=== PATIENT | male | born 1960 | race Caucasian/White ===

== ENCOUNTER 2018-06-24 11:22 | Emergency (ER) | payer MEDICARE ==
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
[2018-06-24 16:12] LABS: Basophils % (A) 1 %; Eosinophils # (A) 0.1 k/uL (0-0.7); Eosinophils % (A) 2 %; HGB 14.7 gm/dL (13.0-17.5); Lymphocytes # (A) 2.5 k/uL (1.0-4.8); Lymphocytes % (A) 33 %; MCH 30.4 pg (25.0-35.0); MCHC 32.7 g/dL (31.0-37.0); Monocytes # (A) 0.5 k/uL (0-1.0); Monocytes % (A) 7 %; Neutrophils # (A) 4.2 k/uL (1.3-7.7); Neutrophils % (A) 56 %; Platelet Count 214 k/uL (150-450); RBC 4.84 m/uL (4.30-5.90); RDW 13.2 % (11.5-15.5); WBC 7.5 k/uL (3.8-10.6)
[2018-06-24 16:18] LABS: ALT 40 U/L (21-72); AST 22 U/L (17-59); Albumin 3.9 g/dL (3.5-5.0); Alkaline Phosphatase 94 U/L (38-126); Anion Gap 7 mmol/L; Blood Urea Nitrogen 13 mg/dL (9-20); Calcium 8.9 mg/dL (8.4-10.2); Carbon Dioxide 23 mmol/L (22-30); Chloride 111 mmol/L (98-107); Glucose 88 mg/dL (74-99); Potassium 4.4 mmol/L (3.5-5.1); Sodium 141 mmol/L (137-145); Total Bilirubin 0.4 mg/dL (0.2-1.3); Total Protein 6.4 g/dL (6.3-8.2)
[2018-06-24] MEDS ORDERED: ALBUTEROL INHALER 60 PUFF/8 GM INHALER INHALATION PRN (17:05)
[2018-06-24 18:26] LABS: Appearance,Urine Cloudy (Clear); Bilirubin,Urine Negative (Negative); Blood,Urine Negative (Negative); Color,Urine Yellow; Glucose,Urine (UA) Negative (Negative); Hyaline Casts,Urine 11 /lpf (0-2); Ketones,Urine Negative (Negative); Leukocyte Esterase,Urine Negative (Negative); Mucus,Urine Many /hpf; Nitrite,Urine Negative (Negative); Protein,Urine 1+ (Negative); RBC,Urine 1 /hpf (0-5); Specific Gravity,Urine 1.025 (1.001-1.035); WBC,Urine 2 /hpf (0-5)
[2018-06-24 18:35] LABS: Amphetamine Screen,Urine Not Detected (NotDetected); Barbiturate Screen,Urine Not Detected (NotDetected); Benzodiazepines Screen,Urine Not Detected (NotDetected); Cocaine Screen,Urine Not Detected (NotDetected); Methadone Screen, Urine Not Detected (NotDetected); Opiate Screen,Urine Detected (NotDetected); Oxycodone Screen, Urine Detected (NotDetected); Phencyclidine Screen,Urine Not Detected (NotDetected); Tricyclic Antidepressant,Urine Not Detected (NotDetected); Urn Cannabinoid Scrn Detected (NotDetected)
[2018-06-24] MEDS ORDERED: NICOTINE 14MG/24HR PATCH TRANSDERM STA (20:11)
[2018-06-24] MEDS ORDERED: MORPHINE SULFATE ER 30 MG TABLET PO SCH (21:00)
[2018-06-24] MEDS ORDERED: METOPROLOL TARTRATE 50 MG TAB PO SCH (22:00)
[2018-06-24] MEDS ORDERED: hydrALAZINE HCL 25 MG TAB PO SCH (22:00)
[2018-06-25] MEDS ORDERED: LORazepam 2 MG/ML INJ IM STA (00:32)
[2018-06-25] MEDS ORDERED: diphenhydrAMINE 50 MG/ML 1 ML VIAL IM STA (00:32)
[2018-06-25 01:34] VITALS: BP 139/79; PULSE 84; RESP 17
[2018-06-25 01:39] VITALS: TEMP 98.6
[2018-06-25] MEDS ORDERED: NON-FORMULARY DRUG (Losartan/Hydrochlorothiazide [Hyzaar 100-12.5 Tablet] 1 TAB) PO SCH (09:00)
== END 2018-06-25 01:39 ==
LOC: EC 11:22
DX: F32.9 Major depressive disorder, single episode, unspecified (principal); F41.9 Anxiety disorder, unspecified; R45.851 Suicidal ideations; I25.10 Atherosclerotic heart disease of native coronary artery without angina pectoris; I10 Essential (primary) hypertension; Z87.891 Personal history of nicotine dependence; Z98.890 Other specified postprocedural states; Z79.891 Long term (current) use of opiate analgesic; Z79.899 Other long term (current) drug therapy; Z88.5 Allergy status to narcotic agent
CPT/HCPCS: 82075; 36415; 93005; 80053; 85025; 81001; 80306; 99285; 96372 ×2; S4990; J2060; J1200

== ENCOUNTER → 2018-12-03 | Outpatient (CLI) | payer MEDICARE ==
--- NOTE | 2018-12-03 14:10 | MR ---
EXAMINATION TYPE: MR lumbar spine wo con DATE OF EXAM: 12/03/2018 COMPARISON: Prior MRI lumbar spine June 05, 2016 HISTORY: Low back pain / Radiculopathy TECHNIQUE: Multiplanar, multisequence imaging of the lumbar spine is performed without IV contrast. FINDINGS: Sagittal images of the lumbar spine show vertebral body heights and alignment to remain sat isfactory. Multilevel disc desiccation is redemonstrated. Mild to moderate disc space narrowing L2-L3 level is redemonstrated. Advanced disc space narrowing with heterogeneous endplate changes L5-S1 lev el is redemonstrated. Posterior disc herniations L2-L3 and L3-L4 levels are redemonstrated on sagitta l images felt stable. The conus medullaris remains normal in position and signal ending mid L1 level. Heterogeneity of bone marrow signal intensity remains present with mild to moderate multilevel anter ior spurring again seen. Axial images show the T12-L1 level to remain within normal limits. Axial images at the L1-L2 level redemonstrate mild broad disc bulge mildly effacing anterior thecal s ac, bilateral neural foramina are patent. Axial images at L2-L3 level show more moderate broad disc bulge effacing anterior thecal sac, bilater al neural foramina are patent. No significant change from prior. Axial images at the L3-L4 level show mild to moderate broad-based posterior disc protrusion mildly ef facing anterior thecal sac with mild facet degenerative changes bilaterally. There is mild right grea ter than left bilateral anterior inferior neural foraminal narrowing. There is no significant change from prior. Axial images at L4-L5 level show mild facet degenerative changes otherwise are felt within normal [place] its. Axial images at L5-S1 level show broad-based posterior disc protrusion mild facet degenerative change s bilaterally but spinal canal is preserved. There is mild bilateral inferior neural foraminal narrow ing. No suspicious incidental retroperitoneal findings are seen. IMPRESSION: Multilevel degenerative changes most prominent in the mid lumbar spine without significan t change from most recent MRI.
== END | disposition home or self-care (01) ==
LOC: RADMRIMAIN 12:20
PROVIDERS: ATTEND Anesthesiology Pain Medicine
DX: M47.26 Other spondylosis with radiculopathy, lumbar region (principal)
CPT/HCPCS: 72148

== ENCOUNTER 2019-09-07 10:43 | Emergency (ER) | payer MEDICARE ==
[2019-09-07] MEDS ORDERED: SODIUM CHLORIDE 0.9% 1,000 ML IV STA (11:03)
[2019-09-07] MEDS ORDERED: ASPIRIN 81 MG PO STA (11:03)
[2019-09-07] MEDS ORDERED: HYDROmorphone 1 MG/ML 1 ML SYRINGE IVP STA (11:04)
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
[2019-09-07 11:31] LABS: Basophils # (A) 0.1 k/uL (0-0.2); Basophils % (A) 1 %; Eosinophils # (A) 0.2 k/uL (0-0.7); Eosinophils % (A) 2 %; HCT 44.4 % (39.0-53.0); HGB 14.9 gm/dL (13.0-17.5); Lymphocytes # (A) 2.2 k/uL (1.0-4.8); Lymphocytes % (A) 30 %; MCH 31.7 pg (25.0-35.0); MCHC 33.7 g/dL (31.0-37.0); MCV 94.3 fL (80.0-100.0); Mean Platelet Volume 5.9; Monocytes # (A) 0.6 k/uL (0-1.0); Monocytes % (A) 9 %; Neutrophils # (A) 3.9 k/uL (1.3-7.7); Neutrophils % (A) 55 %; Platelet Count 274 k/uL (150-450); RDW 12.8 % (11.5-15.5); WBC 7.2 k/uL (3.8-10.6)
[2019-09-07 11:35] LABS: Partial Thromboplastin Time 23.6 sec (22.0-30.0); Prothrombin Time 10.3 sec (9.0-12.0)
[2019-09-07 11:42] LABS: Albumin 4.3 g/dL (3.5-5.0); Calcium 9.5 mg/dL (8.4-10.2); Potassium 4.2 mmol/L (3.5-5.1); Total Bilirubin 0.6 mg/dL (0.2-1.3); Total Protein 7.4 g/dL (6.3-8.2)
--- NOTE | 2019-09-07 13:02 | CT ---
EXAMINATION TYPE: CT angio thor/abd pel aorta DATE OF EXAM: 09/07/2019 COMPARISON: Previous CT scan of the abdomen and pelvis without intravenous contrast dated 06/16/2015. HISTORY: Lt lower chest pain, history of aneurysm CT DLP: 2408.8 mGycm. Automated Exposure Control for Dose Reduction was Utilized. CONTRAST: CT scan of the thorax, abdomen and pelvis is performed without and with IV Contrast, patient injected with 100 mL of Isovue 300. FINDINGS:There are calcified granulomas throughout the lungs. There is dependent atelectasis within t he lungs. There is some scarring or atelectasis in the left lingula. There is a small amount of pleur al thickening in the posterior aspect of the left upper lobe. There is no significant axillary, mediastinal or hilar adenopathy. There is no pleural or pericardial fluid. The heart is not enlarged. There is no evidence of pulmonary embolus. The aorta is normal in caliber without evidence of dissection. Within the abdomen, the liver is mildly prominent measuring 18.5 cm. It is slightly hypodense with re spect to the spleen and may be fatty infiltrated. The spleen and gallbladder appear normal. Both adrenal glands appear normal. Both kidneys demonstrate function and appear morphologically normal. The pancreas is normal. There is no significant retroperitoneal, iliac or inguinal adenopathy. The bladder is unremarkable. There are scattered diverticula in the sigmoid region without radiographic evidence of diverticulitis . The appendix is normal. Small bowel loops are normal. There is no free fluid and no free air. There is degenerative disc disease and a vacuum phenomena present at L5-S1. IMPRESSION: 1. NORMAL CALIBER AORTA WITHOUT EVIDENCE OF DISSECTION. 2. NO EVIDENCE OF PULMONARY EMBOLUS. 3. MILD HEPATOMEGALY AND PROBABLE FATTY INFILTRATION OF THE LIVER. 4. 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 5. MILD DIVERTICULOSIS OF THE SIGMOID COLON. 6. DEGENERATIVE CHANGES WITHIN THE SPINE.
[2019-09-07 13:04] VITALS: RESP 18
[2019-09-07] MEDS ORDERED: ORPHENADRINE 30 MG/ML 2 ML VIAL IVP STA (13:35)
[2019-09-07 13:58] VITALS: BP 120/85; PULSE 72; TEMP 98.5
== END 2019-09-07 14:05 | disposition home or self-care (01) ==
LOC: EC 10:43
DX: S29.9XXA Unspecified injury of thorax, initial encounter (principal); I25.10 Atherosclerotic heart disease of native coronary artery without angina pectoris; J44.9 Chronic obstructive pulmonary disease, unspecified; I10 Essential (primary) hypertension; I38 Endocarditis, valve unspecified; Z79.51 Long term (current) use of inhaled steroids; Z79.82 Long term (current) use of aspirin; Z79.899 Other long term (current) drug therapy; Z86.79 Personal history of other diseases of the circulatory system; Z95.5 Presence of coronary angioplasty implant and graft; Z87.891 Personal history of nicotine dependence; W50.0XXA Accidental hit or strike by another person, initial encounter; Y93.89 Activity, other specified
CPT/HCPCS: 36415; 80053; 83735; 84484; 85025; 85610; 85730; 71275; 74174; 96374; 96375; 96361 ×2; 99284; J2360; J1170; Q9967

== ENCOUNTER → 2021-08-02 | Outpatient (CLI) | payer MEDICARE ==
--- NOTE | 2021-08-02 19:06 | CONS ---
CONSULTATION REASON FOR CONSULTATION: Sleep apnea. This patient is 60. He has been seen in our office regarding his COPD. He has had extensive neck surgeries due to unstable spine fracture that occurred after a fall off a ladder. The patient has undergone 2 surgeries thus far. He has chronic pain and limitation of mobility and neck rotation because of his neck surgeries. He occasionally wakes up in the middle of night because of pain and discomfort. At same time, he is having issues with snoring and witnessed apneas and chronic hypersomnia and sleepiness. His has moved to outside the bed because of his loud snore. He goes to bed around 11 p.m., wakes up 9:00 am in the morning and he maintains same schedule throughout the week. He sleeps on his side. He does watch television in the bed. Weight is up by another 20 pounds over the past one year. The patient wakes up multiple times in the middle of night at times for pain, discomfort and urination. He does not sleep/fall asleep while driving his car. PAST MEDICAL HISTORY: COPD, bicuspid aortic valve, hypertension and cervical spine fracture/disk disease following a fall off the ladder many years back. PAST SURGICAL HISTORY: Includes cervical diskectomy and fusion C2 through C7 x2 and his last surgery was done 2010. Other surgeries are nose surgery for broken nose. DRUG ALLERGIES: NOT KNOWN. OUTPATIENT MEDICATIONS: Includes Lopressor 50 mg 3 times a day, losartan 12.5 mg once a day, hydralazine 5 mg 3 times a day, Ventolin as necessary, Symbicort 160/4.5 2 puffs twice a day, morphine 30 mg q.12 hours and oxycodone every 6 hours on a p.r.n. basis for breakthrough pain. SOCIAL HISTORY: Ex-smoker. No history of alcoholism. No history of IV drugs. FAMILY HISTORY: Negative for sleep apnea. Positive for hypertension and heart disease. REVIEW OF SYSTEMS: Fourteen-point review of system was done. Positive findings all mentioned above in history of present illness. He has chronic pain and chronic tiredness and fatigue and hypersomnia and some problems with memory and concentration. No grinding of the teeth. No sleepwalking. No sleep talking. No heartburn. No restlessness in lower extremities. PHYSICAL EXAMINATION: VITAL SIGNS: BP is 129/74, pulse 72, respirations 16, temperature 97.4. Saturation 96% on room air. Height is 5 feet 10 inches, weight is 256. [place] score is at 4. BMI 36.5. Neck size is 18.5 inches. GENERAL APPEARANCE: Calm comfortable. HEAD is atraumatic, normocephalic. NECK: Supple. No JVD. No goiter or neck masses. Mallampati class 4. LUNGS diminished, otherwise clear. HEART: Heart sounds are regular rate and rhythm. Normal S1, S2. No murmurs. ABDOMEN: Soft, nontender. No organomegaly. EXTREMITIES: No edema, no cyanosis or clubbing. IMPRESSION: 1. Obstructive sleep apnea clinically suspected, currently under investigation. The patient takes opiates in the form of morphine as maintenance and oxycodone for pain control, which obviously can cause muscle relaxation and contribute to his snoring and sleep apnea. At the same time, the patient has chronic neck pain and has undergone 2 previous surgeries involving the cervical diskectomy and multilevel spine fusion. As a result, the patient has been relatively immobile over the years and he has gained considerable amount of weight and has gained at least 20 pounds over the past one year. He has Mallampati class IV. His body mass index is 36.8. 2. Obesity. 3. Chronic obstructive pulmonary disease. 4. Bicuspid aortic valve. 5. Hypertension. PLAN: 1. We will do a polysomnogram. 2. We will discuss the findings with the patient and based on the results of sleep study, we will make further recommendations on sleep apnea treatment if needed. KALPESH / STEVE: [id number] /
== END ==
LOC: SLEEP 14:24
PROVIDERS: ATTEND Internal Medicine Critical Care Medicine
DX: G47.30 Sleep apnea, unspecified (principal); E66.9 Obesity, unspecified; M54.2 Cervicalgia; J44.9 Chronic obstructive pulmonary disease, unspecified; I10 Essential (primary) hypertension; Q23.1 Congenital insufficiency of aortic valve; Z87.891 Personal history of nicotine dependence; Z68.36 Body mass index [BMI] 36.0-36.9, adult; Z98.1 Arthrodesis status
CPT/HCPCS: 99211

== ENCOUNTER → 2022-01-31 | Outpatient (CLI) | payer MEDICARE ==
--- NOTE | 2022-01-31 15:17 | P.PN ---
Subjective Progress Note Date: 01/31/22 This is a 61-year-old the patient was being seen in follow-up in the sleep center regarding his the patient's obstructive sleep apnea. The patient was diagnosed having obstructive and central sleep apnea. screening polysomnogram was completed and the patient was found to have severe sleep apnea with abn ormalities in sleep architecture and difficulties with sleep maintenance. The patient had a combination of obstructive and central. The patient was found to have an AHI of 65. He did have a considerable number of central events as the patient was taken narcotics in the form of morphine and oxycodone. He did not have any history of congestion heart failure. He is obese and he has COPD and bicuspid aortic valve and hypertension. Based on all this, the patient was given a titration following that the patient was placed on the BiPAP which is currently at a pressure of 12/8 cm of water. On today's evaluation, the patient's complaint is that the BiPAP pressure is high and sometimes causing too much pressure on his face. Nevertheless, he is benefiting from the treatment and he continues to use his BiPAP every night. I did check his compliance he ate on the machine. Based on the 30 day compliancy, the patient has utilizes BiPAP every night and he hasn't she is more than 4 hours 26 out of the past 30 days. His been averaging around 5.4 hours of BiPAP use per night. He is leak is in order o 49 L per minute. His tidal volumes at 720 mL and the patient has a respiratory rate of 12 and a minute ventilation of 9.1 L per minute. The patient's current [place] score is at 5. His AHI while on treatment is down to 12 and the patient has a central apnea and this of 6.6. His weight is up by a few pounds and currently is weighing around 260. Overall, he is doing well. He is benefiting from the treatment. He is waking up much more refreshed and alert during the day. No new complaints otherwise for now. No chest pain. No shortness of breath and no cardiac arrhythmias. He is going to undergo further rhizotomy regarding his chronic neck pain. Objective - Exam the patient has a blood pressure 158/81, pulse is 72, respirations 16, weight is 260 pounds, and saturation 97% on room air, The patient appeared well nourished and normally developed. Vital signs as documented. Head exam is unremarkable. No scleral icterus or corneal arcus noted. Neck is without jugular venous distension, thyromegaly, or carotid bruits. Carotid upstrokes are brisk bilaterally. the patient has a Mallampati class IV.Lungs are clear to auscultation and percussion. Cardiac exam reveals the PMI to be normally sized and situated. Rhythm is regular. First and second heart sounds normal. No murmurs, rubs or gallops. Abdominal exam reveals normal bowel sounds, no masses, no organomegaly and no aortic enlargement. Extremities are nonedematous and both femoral and pedal pulses are normal.Examination of the skin revealed no evidence of significant rashes, suspicious appearing nevi or other concerning lesions.Neurologically, the patient is awake and alert and the patient does not have any focal neurological deficit. Cranial nerves are essentially intact. Assessment and Plan Plan: 1 severe sleep apnea, a combination of obstructive and central with a baseline AHI of 65. The patient is currently on a BiPAP at a pressure of 12/8 cm of water. Note that the treatment has growth on the patient's AHI down to 12. The patient continues to have some mild central events. Obstructive events are essentially recovered. 2chronic hypersomnia, improving 3 severe nocturnal oxygen saturation, improving 4 excessive sleep fragmentation, multifactorial, related to chronic pain in addition to obstructive and central sleep apnea 5 obesity with a body mass index of 37 6 COPD 7 chronic narcotic use in the form of oxycodone and morphine 8 bicuspid aortic valve 9 hypertension Plan Treatment in general has been successful. Continue the BiPAP treatment for now. I'm going to switch this patient to a VPAP auto and I'm going to set the minimum EPAP at 4 and a maximum pressure of 12 with a pressure support of 4. We'll keep the same mask interface. Continue narcotics with a combination of morphine and oxycodone and the patient is going to undergo rhizotomy for his chronic neck pain. I'm hoping better pain control for this patient. Encourage weight loss. Optimize sleep hygiene. See me back in the office in a year's time in follow-up.
== END ==
LOC: SLEEP 13:59
PROVIDERS: ATTEND Internal Medicine Critical Care Medicine
DX: G47.33 Obstructive sleep apnea (adult) (pediatric) (principal); G47.31 Primary central sleep apnea; G47.36 Sleep related hypoventilation in conditions classified elsewhere; G89.29 Other chronic pain; E66.9 Obesity, unspecified; J44.9 Chronic obstructive pulmonary disease, unspecified; Z79.891 Long term (current) use of opiate analgesic; Q23.1 Congenital insufficiency of aortic valve; Z99.89 Dependence on other enabling machines and devices; Z68.37 Body mass index [BMI] 37.0-37.9, adult; I10 Essential (primary) hypertension; Z87.891 Personal history of nicotine dependence

== ENCOUNTER → 2022-08-08 | Outpatient (CLI) | payer MEDICARE ==
--- NOTE | 2022-08-08 14:50 | US ---
EXAMINATION TYPE: US carotid duplex BILAT DATE OF EXAM: 08/08/2022 COMPARISON: NONE CLINICAL HISTORY: R42 DIZZINESS AND GIDDINESS M54.2 I10. TECHNIQUE: Carotid duplex ultrasound examination. Indirect Doppler criteria was utilized. FINDINGS: EXAM MEASUREMENTS: RIGHT: Peak Systolic Velocity (PSV) cm/sec ----- Right CCA: 78.7 ----- Right ICA: 133.4 ----- Right ECA: 103.0 ICA/CCA ratio: 1.7 RIGHT: End Diastole cm/sec ----- Right CCA: 25.9 ----- Right ICA: 51.0 ----- Right ECA: 28.0 LEFT: Peak Systolic Velocity (PSV) cm/sec ----- Left CCA: 104.3 ----- Left ICA: 132.9 ----- Left ECA: 27.8 ICA/CCA ratio: 1.3 LEFT: End Diastole cm/sec ----- Left CCA: 34.4 ----- Left ICA: 60.2 ----- Left ECA: 27.8 VERTEBRALS (direction of flow): Right Vertebral: Antegrade Left Vertebral: Antegrade Rhythm: Normal BALLING HEAD TENDER NOTES: Mild atherosclerotic changes without significant velocity increases. IMPRESSION: No hemodynamically significant stenosis appreciated. Criteria for Assigning % of Stenosis / Diameter reduction (Estimation based on the indirect measurements of the internal carotid artery velocities (ICA PSV). 1. Normal (no stenosis)=ICA PSV < 125 cm/s: ratio < 2.0: ICA EDV<40 cm/s. 2. Less than 50% stenosis=ICA PSV < 125 cm/s: ratio < 2.0: ICA EDV<40 cm/s. 3. 50 to 69% stenosis=ICA PSV of 125 to 230 cm/s: ration 2.0 ? 4.0: ICA EDV 40-100 cm/s. 4. Greater than 70% stenosis to near occlusion= ICA PSV > 230 cm/s: ratio > 4.0: ICA EDV > 100 cm/s. 5. Near occlusion= ICA PSV velocities may be low or undetectable: variable ratio and ICA EDV. 6. Total occlusion=unable to detect flow.
== END | disposition home or self-care (01) ==
LOC: RADUSWWP 14:02
PROVIDERS: ATTEND Family Medicine
DX: R42 Dizziness and giddiness (principal); M54.2 Cervicalgia; I10 Essential (primary) hypertension
CPT/HCPCS: 93880

== ENCOUNTER 2022-11-23 11:03 | Day surgery (SDC) | payer MEDICARE ==
[2022-11-21 15:46] VITALS: BMI 34.8
[~2022-11-23 11:03] MED LIST: ATROPINE SULFATE 0.4 MG/ML 1 ML VIAL IM ONE; LACTATED RINGERS 1,000 ML IV SCH
[2022-11-23] MEDS ORDERED: LIDOCAINE 1% (10MG/ML) FOR IV START INTRADERMA PRN (11:38)
[2022-11-23] MEDS ORDERED: ONDANSETRON 4 MG/2 ML VIAL IVP PRN (11:38)
[2022-11-23] MEDS ORDERED: LACTATED RINGERS 1,000 ML IV SCH (11:38)
[2022-11-23 11:57] VITALS: RESP 16; TEMP 97.3
[2022-11-23] MEDS ORDERED: MIDAZOLAM 2 MG/2 ML VIAL ONE (12:15)
[2022-11-23] MEDS ORDERED: LIDOCAINE 2% INJ 20 MG/ML (2 ML VIAL) ONE (12:15)
[2022-11-23] MEDS ORDERED: PROPOFOL 10 MG/ML 20 ML VIAL IV ONE (12:15)
[2022-11-23] MEDS ORDERED: KETAMINE 10 MG/ML 20 ML VIAL ONE (12:15)
[2022-11-23] MEDS ORDERED: fentaNYL (PF) 50 MCG/ML 2 ML AMP ONE (12:15)
[2022-11-23] MEDS ORDERED: LIDOCAINE 2% INJ 20 MG/ML INTRATRACH ONE (12:26)
[2022-11-23 13:09] VITALS: BP 121/76; PULSE 66
--- NOTE | 2022-11-23 13:13 | PCN ---
PROCEDURE NOTE PROCEDURE PERFORMED: Bronchoscopy, airway examination, therapeutic lavage, BAL, right middle lobe. PREOPERATIVE DIAGNOSES: Retained secretions, chronic obstructive pulmonary disease, acute bronchitis. POSTOPERATIVE DIAGNOSES: Retained secretions, chronic obstructive pulmonary disease, acute bronchitis. OPERATORS: Dr. Sweeney. There was informed consent and universal timeout. The patient's procedure took place in room #1 [facility] endoscopy. ANESTHESIA: Provided general anesthesia. DESCRIPTION OF PROCEDURE: After the patient was adequately sedated and being fully monitored, the bronchoscope was inserted through the right nostril. It passed through the right nasopharynx into the oropharynx. Next, the hypopharynx was identified. The hypopharyngeal structures, including anterior commissure, true cords, false cords, arytenoids, piriform sinuses right and left, vallecula, and epiglottis, all appeared normal. The glottic opening was topicalized. The bronchoscope was pushed through the glottic opening into the trachea. There was a mild degree of tracheomalacia. The trachea itself looked otherwise normal. Tracheal darian was sharp. The right and left mainstem were topicalized. The right upper lobe and its 3 segments, right middle lobe and its 2 segments, the right lower lobe and its 5 segments, the left upper lobe proper and its 2 segments, the lingula and its 2 segments and the left lower lobe and its 4 segments all had similar findings of diffuse airway erythema and hyperemia. There were thick secretions. They were suctioned with some difficulty. There was no dominant mass or tumor. There was some mucosal friability. Next, the bronchoscope was wedged into the right middle lobe. A formal BAL took place. A 30 mL of fluid was recovered. It will be sent to the laboratory for analysis including cytology and microbiology. The patient tolerated the procedure well and the bronchoscope was withdrawn. There was no immediate complication. MMODL / IJN: [id number] /
[2022-11-23 19:12] LABS: Appearance,BF Hazy
== END 2022-11-23 13:25 | disposition home or self-care (01) ==
LOC: ORWHC2ENDO 11:03
PROVIDERS: ATTEND Internal Medicine Critical Care Medicine
DX: J44.0 Chronic obstructive pulmonary disease with (acute) lower respiratory infection (principal); J39.8 Other specified diseases of upper respiratory tract; Z87.891 Personal history of nicotine dependence; I25.10 Atherosclerotic heart disease of native coronary artery without angina pectoris; I10 Essential (primary) hypertension; E78.5 Hyperlipidemia, unspecified; I71.9 Aortic aneurysm of unspecified site, without rupture; F41.9 Anxiety disorder, unspecified; Z98.1 Arthrodesis status; G47.33 Obstructive sleep apnea (adult) (pediatric); Z99.89 Dependence on other enabling machines and devices; K21.9 Gastro-esophageal reflux disease without esophagitis; Z79.01 Long term (current) use of anticoagulants; Z79.02 Long term (current) use of antithrombotics/antiplatelets; Z79.51 Long term (current) use of inhaled steroids; Z79.82 Long term (current) use of aspirin; Z79.1 Long term (current) use of non-steroidal anti-inflammatories (NSAID); Z79.891 Long term (current) use of opiate analgesic; Z79.899 Other long term (current) drug therapy; Z88.8 Allergy status to other drugs, medicaments and biological substances
CPT/HCPCS: 87798 ×3; 87496; 87498; 87529; 88108; 88305; 89050; 87252; 87502; 87634; 87070; 87205; 87116; 87102; 87206; 31624; J2001 ×2; J2250; J0461; J2405; J3010; J2704

== ENCOUNTER 2024-06-04 00:13 | Emergency (ER) | payer MEDICARE ==
[2024-06-04 00:17] VITALS: RESP 20; TEMP 98.1
[2024-06-04 01:04] LABS: Basophils # (A) 0.1 k/uL (0-0.2); Basophils % (A) 1 %; Eosinophils # (A) 0.2 k/uL (0-0.7); Eosinophils % (A) 2 %; HCT 48.1 % (39.0-53.0); HGB 15.9 gm/dL (13.0-17.5); Lymphocytes # (A) 3.4 k/uL (1.0-4.8); Lymphocytes % (A) 34 %; MCHC 33.1 g/dL (31.0-37.0); MCV 96.7 fL (80.0-100.0); Mean Platelet Volume 7.7; Monocytes # (A) 0.8 k/uL (0-1.0); Monocytes % (A) 8 %; Neutrophils # (A) 5.4 k/uL (1.3-7.7); Neutrophils % (A) 53 %; Platelet Count 265 k/uL (150-450); RBC 4.97 m/uL (4.30-5.90); RDW 12.7 % (11.5-15.5); WBC 10.1 k/uL (3.8-10.6)
[2024-06-04 01:13] LABS: Partial Thromboplastin Time 25.9 sec (22.0-30.0); Prothrombin Time 11.2 sec (10.0-12.5)
--- NOTE | 2024-06-04 01:13 | ED ---
Recheck HPI - General Chief Complaint: Recheck/Abnormal Lab/Rx Stated Complaint: elevated blood pressure Time Seen by Provider: 06/04/24 00:22 Source: patient Mode of arrival: ambulatory Limitations: no limitations - History of Present Illness Initial Comments: 63-year-old male presenting with chief complaint of elevated blood pressure. Patient reports that he has been dealing with some stressful events, states that his is currently being hospitalized. States that this evening he had what felt like a panic attack. He admits to headache with some nausea and lower back pain. He denies any shortness of breath. States that the did feel a tightness in his chest. No lower extremity swelling. He states that this feels similar to previous panic attacks. - Related Data Home Medications Medication Instructions Recorded Confirmed oxyCODONE HCL [oxyCODONE HCL (IR)] 15 mg PO Q6H 06/24/18 11/23/22 Albuterol Sulfate [Ventolin HFA] 1 - 2 puff INHALATION Q6H PRN 09/07/19 11/23/22 Aspirin EC [Ecotrin Low Dose] 81 mg PO DAILY 09/07/19 11/23/22 Metoprolol Tartrate [Lopressor] 50 mg PO TID 09/07/19 11/23/22 Budesonide/Formoterol Fumarate 1 puff INHALATION DAILY 11/21/22 11/23/22 [Symbicort 160-4.5 Mcg Inhaler] Cholecalciferol [Vitamin D3 (125 125 mcg PO DAILY 11/21/22 11/23/22 Mcg = 5000 Iu)] Ipratropium-Albuterol Nebulize 3 ml INHALATION QID PRN 11/21/22 11/23/22 [Duoneb 0.5 mg-3 mg/3 ml Soln] Losartan/Hydrochlorothiazide 1 tab PO TID 11/21/22 11/23/22 [Losartan-Hctz 100-25 mg Tab] Meclizine HCl 25 mg PO TID PRN 11/21/22 11/23/22 Morphine Sulfate [Morphine Sulfate 30 mg PO BID 11/21/22 11/23/22 ER] Multivit-Mins/Iron/Folic/Lycop 2 each PO DAILY 11/21/22 11/23/22 [Centrum Men's Tablet] hydrALAZINE HCL [Apresoline] 25 mg PO TID 11/21/22 11/23/22 Allergies Allergy/AdvReac Type Severity Reaction Status Date / Time No Known Allergies Allergy Verified 06/04/24 00:17 Review of Systems ROS Statement: Those systems with pertinent positive or pertinent negative responses have been documented in the HPI. ROS Other: All systems not noted in ROS Statement are negative. Past Medical History Past Medical History: Coronary Artery Disease (CAD), COPD, Hyperlipidemia, Hypertension, Sleep Apnea/CPAP/BIPAP Additional Past Medical History / Comment(s): See Dr Sweeney's H&P. Chronic neck and back pain. Hx fall with broken rib (healed now) due to dizziness. Vertigo. Degenerative disc disease. "Sick since Sep 2022, phlegm in lungs, cannot cough out, SOB breath". Leaky heart valve, aortic aneurysm, being monitored. CPAP use. Cannot turn head to the left. Gets pain procedures at [facility] every 6 months on neck alteranting every 6 months with pain procedures on back. History of Any Multi-Drug Resistant Organisms: None Reported Past Surgical History: Heart Catheterization, Orthopedic Surgery Additional Past Surgical History / Comment(s): Neck fusion ("6 levels), nasal surgery X2, pain procedures. Past Anesthesia/Blood Transfusion Reactions: Postoperative Nausea & Vomiting (PONV) Additional Past Anesthesia/Blood Transfusion Reaction / Comment(s): PONV with first nasal surgery. Vertigo. Past Psychological History: Anxiety Smoking Status: Former smoker Past Alcohol Use History: Rare Past Drug Use History: None Reported - Past Family History Mother Family Medical History: No Reported History General Exam Limitations: no limitations General appearance: alert, anxious Head exam: Present: atraumatic, normocephalic Eye exam: Present: normal appearance, PERRL, EOMI Neck exam: Present: normal inspection. Absent: meningismus Respiratory exam: Present: normal lung sounds bilaterally. Absent: respiratory distress, wheezes, rales, rhonchi, stridor Cardiovascular Exam: Present: regular rate, normal rhythm, normal heart sounds. Absent: systolic murmur, diastolic murmur, rubs, gallop, clicks Extremities exam: Absent: pedal edema Neurological exam: Present: alert, oriented X3 Psychiatric exam: Present: normal affect, normal mood Skin exam: Present: warm, dry Course Vital Signs 06/04/24 06/04/24 06/04/24 00:14 01:17 02:49 Temperature 98.1 F Pulse Rate 62 62 74 Respiratory 20 20 20 Rate Blood Pressure 186/89 126/95 119/65 O2 Sat by Pulse 98 99 98 Oximetry Medical Decision Making - Medical Decision Making Was pt. sent in by a medical professional or institution (TATYANA Calvo, ORTHOTIST OR PROSTHETIST, urgent care, hospital, or [facility]...) When possible be specific @ -No Did you speak to anyone other than the patient for history (EMS, parent, family, police, friend...)? What history was obtained from this source @ -No Did you review nursing and triage notes (agree or disagree)? Why? @ -I reviewed and agree with nursing and triage notes Were old charts reviewed (outside hosp., previous admission, EMS record, old EKG, old radiological studies, urgent care reports/EKG's, [facility] records)? Report findings @ -No old charts were reviewed Differential Diagnosis (chest pain, altered mental status, abdominal pain women, abdominal pain men, vaginal bleeding, weakness, fever, dyspnea, syncope, headache, dizziness, GI bleed, back pain, seizure, CVA, palpatations, mental health, musculoskeletal)? @ -MDM Differential Dyspnea: Coronary syndrome, arrhythmia, tamponade, asthma, COPD, pulmonary embolism, pneumonia, pneumothorax, pulmonary effusion, anaphylaxis, diabetic ketoacidosis, flailed chest, pulmonary contusion, diaphragmatic rupture, anemia, neuromusc ular this is not meant to be an all-inclusive list. EKG interpreted by me (3pts min.). @ -EKG shows sinus rhythm ventricular rate 61. UT interval 183. QRS 93. QT 406. QTc 410. No ST deviation X-rays interpreted by me (1pt min.). @ -Chest x-ray shows no acute cardiopulmonary process CT interpreted by me (1pt min.). @ -None done U/S interpreted by me (1pt. min.). @ -None done What testing was considered but not performed or refused? (CT, X-rays, U/S, labs)? Why? @ -None What meds were considered but not given or refused? Why? @ -None Did you discuss the management of the patient with other professionals (professionals i.e. TATYANA Calvo, ORTHOTIST OR PROSTHETIST, lab, RT, psych nurse, child protective services social worker, tax lawyer, teacher, digital controls technical officer, case hardener)? Give summary @ -No Was smoking cessation discussed for >3mins.? @ -No Was critical care preformed (if so, how long)? @ -No Were there social determinants of health that impacted care today? How? (Homelessness, low income, unemployed, alcoholism, drug addiction, transportation, low edu. Level, literacy, decrease access to med. care, [facility], rehab)? @ -No Was there de-escalation of care discussed even if they declined (Discuss DNR or withdrawal of care, Hospice)? DNR status @ -No What co-morbidities impacted this encounter? (DM, HTN, Smoking, COPD, CAD, Cancer, CVA, ARF, Chemo, Hep., AIDS, mental health diagnosis, sleep apnea, morbid obesity)? @ -None Was patient admitted / discharged? Hospital course, mention meds given and route, prescriptions, significant lab abnormalities, going to OR and other pertinent info. @ -63-year-old male presenting with chief complaint of elevated blood pressure. Patient is currently under a great deal of stress, he tells me his is being admitted for psychiatric care. Symptoms feel consistent with his previous panic attacks according to him. History and physical exam are conducted. Patient is given 2 mg Ativan as well as aspirin 324 mg. EKG shows sinus rhythm with no ST deviation. Lab work shows no leukocytosis or anemia. Negative troponin. Chest x-ray shows no acute cardiopulmonary process. On reassessment patient reports that his symptoms have significantly improved, he is feeling much better. He is reporting some lower back pain, he has chronic lower back pain. He is given pain medication. He feels ready for discharge home. Follow- up with PCP. Report back to ER with any new or worsening symptoms. Discussed return parameters and answered all questions. Patient conveyed verbal understanding and agreed to the plan. I discussed this case in detail with my attending Dr. Rust Undiagnosed new problem with uncertain prognosis? @ -No Drug Therapy requiring intensive monitoring for toxicity (Heparin, Nitro, Insulin, Cardizem)? @ -No Were any procedures done? @ -No Diagnosis/symptom? @ -Panic attack Acute, or Chronic, or Acute on Chronic? @ -Acute Uncomplicated (without systemic symptoms) or Complicated (systemic symptoms)? @ -Complicated Side effects of treatment? @ -No Exacerbation, Progression, or Severe Exacerbation? @ -No Poses a threat to life or bodily function? How? (Chest pain, [place], [place], pneumonia, PE, COPD, DKA, ARF, appy, cholecystitis, CVA, Diverticulitis, Homicidal, Suicidal, threat to staff... and all critical care pts) @ -Unlikely - Lab Data Result diagrams: 06/04/24 00:55 06/04/24 00:55 Lab Results 06/04/24 06/04/24 06/04/24 Range/Units 00:55 00:55 00:55 WBC 10.1 (3.8-10.6) k/uL RBC 4.97 (4.30-5.90) m/uL Hgb 15.9 (13.0-17.5) gm/dL Hct 48.1 (39.0-53.0) % MCV 96.7 (80.0-100.0) fL MCH 32.0 (25.0-35.0) pg MCHC 33.1 (31.0-37.0) g/dL RDW 12.7 (11.5-15.5) % Plt Count 265 (150-450) k/uL MPV 7.7 Neutrophils % 53 % Lymphocytes % 34 % Monocytes % 8 % Eosinophils % 2 % Basophils % 1 % Neutrophils # 5.4 (1.3-7.7) k/uL Lymphocytes # 3.4 (1.0-4.8) k/uL Monocytes # 0.8 (0-1.0) k/uL Eosinophils # 0.2 (0-0.7) k/uL Basophils # 0.1 (0-0.2) k/uL PT 11.2 (10.0-12.5) sec INR 1.0 (<1.2) APTT 25.9 (22.0-30.0) sec Sodium 138 (137-145) mmol/L Potassium 4.4 (3.5-5.1) mmol/L Chloride 109 H (98-107) mmol/L Carbon Dioxide 20 L (22-30) mmol/L Anion Gap 9 mmol/L BUN 14 (9-20) mg/dL Creatinine 0.97 (0.66-1.25) mg/dL Est GFR (CKD-EPI)AfAm >90 (>60 ml/min/1.73 sqM) Est GFR (CKD-EPI)NonAf 84 (>60 ml/min/1.73 sqM) Glucose 93 (74-99) mg/dL Calcium 9.4 (8.4-10.2) mg/dL Magnesium 2.0 (1.6-2.3) mg/dL Total Bilirubin 0.8 (0.2-1.3) mg/dL AST 24 (17-59) U/L ALT 30 (4-49) U/L Alkaline Phosphatase 86 (38-126) U/L Troponin I (0.000-0.034) ng/mL Total Protein 7.2 (6.3-8.2) g/dL Albumin 4.7 (3.5-5.0) g/dL 06/04/24 Range/Units 00:55 WBC (3.8-10.6) k/uL RBC (4.30-5.90) m/uL Hgb (13.0-17.5) gm/dL Hct (39.0-53.0) % MCV (80.0-100.0) fL MCH (25.0-35.0) pg MCHC (31.0-37.0) g/dL RDW (11.5-15.5) % Plt Count (150-450) k/uL MPV Neutrophils % % Lymphocytes % % Monocytes % % Eosinophils % % Basophils % % Neutrophils # (1.3-7.7) k/uL Lymphocytes # (1.0-4.8) k/uL Monocytes # (0-1.0) k/uL Eosinophils # (0-0.7) k/uL Basophils # (0-0.2) k/uL PT (10.0-12.5) sec INR (<1.2) APTT (22.0-30.0) sec Sodium (137-145) mmol/L Potassium (3.5-5.1) mmol/L Chloride (98-107) mmol/L Carbon Dioxide (22-30) mmol/L Anion Gap mmol/L BUN (9-20) mg/dL Creatinine (0.66-1.25) mg/dL Est GFR (CKD-EPI)AfAm (>60 ml/min/1.73 sqM) Est GFR (CKD-EPI)NonAf (>60 ml/min/1.73 sqM) Glucose (74-99) mg/dL Calcium (8.4-10.2) mg/dL Magnesium (1.6-2.3) mg/dL Total Bilirubin (0.2-1.3) mg/dL AST (17-59) U/L ALT (4-49) U/L Alkaline Phosphatase (38-126) U/L Troponin I <0.012 (0.000-0.034) ng/mL Total Protein (6.3-8.2) g/dL Albumin (3.5-5.0) g/dL Disposition Clinical Impression: Panic attack Disposition: HOME SELF-CARE Condition: Good Instructions (If sedation given, give patient instructions): Panic Attack (ED) Additional Instructions: Follow-up with PCP. Report back to ER with any new or worsening symptoms. Is patient prescribed a controlled substance at d/c from ED?: No Referrals: Nonstaff,Physician [Primary Care Provider] - 1-2 days Time of Disposition: 02:33
[2024-06-04] MEDS: ASPIRIN 81 MG PO STA (01:19)
[2024-06-04 01:20] LABS: ALT 30 U/L (4-49); AST 24 U/L (17-59); African American GFR (CKD) >90 (>60 ml/min/1.73 sqM); Albumin 4.7 g/dL (3.5-5.0); Alkaline Phosphatase 86 U/L (38-126); Anion Gap 9 mmol/L; Blood Urea Nitrogen 14 mg/dL (9-20); Calcium 9.4 mg/dL (8.4-10.2); Carbon Dioxide 20 mmol/L (22-30); Chloride 109 mmol/L (98-107); Glucose 93 mg/dL (74-99); Non-African American GFR(CKD) 84 (>60 ml/min/1.73 sqM); Potassium 4.4 mmol/L (3.5-5.1); Sodium 138 mmol/L (137-145); Total Bilirubin 0.8 mg/dL (0.2-1.3); Total Protein 7.2 g/dL (6.3-8.2)
[2024-06-04] MEDS: LORazepam 2 MG/ML INJ IV STA (01:20)
--- NOTE | 2024-06-04 02:26 | XR ---
EXAM: XR Chest, 2 Views CLINICAL HISTORY: ITS.REASON XR Reason: Chest Pain TECHNIQUE: Frontal and lateral views of the chest. COMPARISON: No relevant prior studies available. FINDINGS: Lungs: No consolidation or mass. Pleural space: No effusion. Heart: cardiomegaly. Bones/joints: No acute findings. IMPRESSION: No acute cardiopulmonary process.
[2024-06-04] MEDS: Acetaminophen-Codeine 300-30mg TAB PO STA (02:44)
[2024-06-04 02:50] VITALS: BP 119/65; PULSE 74
== END 2024-06-04 02:50 | disposition home or self-care (01) ==
LOC: EC 00:13
DX: F41.0 Panic disorder [episodic paroxysmal anxiety] (principal); I10 Essential (primary) hypertension; Z87.891 Personal history of nicotine dependence; Z79.899 Other long term (current) drug therapy
CPT/HCPCS: 36415; 93005; 80053; 83735; 84484; 85025; 85610; 85730; 71046; 99284; 96374; J2060

== ENCOUNTER 2024-07-10 15:41 | Emergency (ER) | payer MEDICARE ==
[2024-07-10 15:55] VITALS: RESP 18
--- NOTE | 2024-07-10 16:18 | ED ---
Abdominal Pain HPI - General Chief Complaint: Abdominal Pain Stated Complaint: NVD Time Seen by Provider: 07/10/24 16:00 Source: patient, EMS, RN notes reviewed, old records reviewed Mode of arrival: EMS Limitations: no limitations - History of Present Illness Initial Comments: This is a 63-year-old male this patient presents today for evaluation of severe nausea vomiting possible vomiting of blood or black vomit severe abdominal pain. Patient has persistent abdominal pain and severe pain on arrival to the emergency room with persistent vomiting uncontrolled vomiting and retching no medical history no other complaints MD Complaint: abdominal pain -: hour(s) Location: periumbilical, epigastric Radiation: epigastric Migration to: suprapubic Severity: severe Severity scale (1-10): 10 Quality: fullness, sharp Consistency: constant Improves With: nothing Worsens With: nothing Associated Symptoms: nausea, vomiting Treatments Prior to Arrival: other (0) - Related Data Home Medications Medication Instructions Recorded Confirmed oxyCODONE HCL [oxyCODONE HCL (IR)] 15 mg PO Q6H PRN 06/24/18 07/10/24 hydrALAZINE HCL [Apresoline] 25 mg PO TID 11/21/22 07/10/24 Metoprolol Succinate (ER) [Toprol 100 mg PO DAILY 07/10/24 07/10/24 Xl] Morphine Sulfate ER [Ms Contin] 15 mg PO Q12H 07/10/24 07/10/24 Allergies Allergy/AdvReac Type Severity Reaction Status Date / Time No Known Allergies Allergy Verified 07/10/24 18:58 Review of Systems ROS Statement: Those systems with pertinent positive or pertinent negative responses have been documented in the HPI. ROS Other: All systems not noted in ROS Statement are negative. Past Medical History Past Medical History: Coronary Artery Disease (CAD), COPD, Hyperlipidemia, Hypertension, Sleep Apnea/CPAP/BIPAP Additional Past Medical History / Comment(s): See Dr Sweeney's H&P. Chronic neck and back pain. Hx fall with broken rib (healed now) due to dizziness. Vertigo. Degenerative disc disease. "Sick since Sep 2022, phlegm in lungs, cannot cough out, SOB breath". Leaky heart valve, aortic aneurysm, being monitored. CPAP use. Cannot turn head to the left. Gets pain procedures at [facility] every 6 months on neck alteranting every 6 months with pain procedures on back. History of Any Multi-Drug Resistant Organisms: None Reported Past Surgical History: Heart Catheterization, Orthopedic Surgery Additional Past Surgical History / Comment(s): Neck fusion ("6 levels), nasal surgery X2, pain procedures. Past Anesthesia/Blood Transfusion Reactions: Postoperative Nausea & Vomiting (PONV) Additional Past Anesthesia/Blood Transfusion Reaction / Comment(s): PONV with first nasal surgery. Vertigo. Past Psychological History: Anxiety Smoking Status: Former smoker Past Alcohol Use History: Rare Past Drug Use History: None Reported - Past Family History Mother Family Medical History: No Reported History General Exam Limitations: no limitations General appearance: alert, in no apparent distress Head exam: Present: atraumatic, normocephalic, normal inspection Eye exam: Present: normal appearance, PERRL, EOMI. Absent: scleral icterus, conjunctival injection, periorbital swelling ENT exam: Present: normal exam, mucous membranes moist Neck exam: Present: normal inspection. Absent: tenderness, meningismus, lymphadenopathy Respiratory exam: Present: normal lung sounds bilaterally. Absent: respiratory distress, wheezes, rales, rhonchi, stridor Cardiovascular Exam: Present: regular rate, normal rhythm, normal heart sounds. Absent: systolic murmur, diastolic murmur, rubs, gallop, clicks GI/Abdominal exam: Present: soft, normal bowel sounds. Absent: distended, tenderness, guarding, rebound, rigid Extremities exam: Present: normal inspection, full ROM, normal capillary refill. Absent: tenderness, pedal edema, joint swelling, calf tenderness Back exam: Present: normal inspection Neurological exam: Present: alert, oriented X3, CN II-XII intact Psychiatric exam: Present: normal affect, normal mood Skin exam: Present: warm, dry, intact, normal color. Absent: rash Course Vital Signs 07/10/24 07/10/24 15:48 20:08 Pulse Rate 50 L 76 Respiratory 18 18 Rate Blood Pressure 170/89 133/64 O2 Sat by Pulse 98 95 Oximetry - Reevaluation(s) Reevaluation #1: 07/10/24 16:42 Medical records reviewed Reevaluation #2: 07/10/24 16:42 Patient symptoms unchanged Reevaluation #3: 07/10/24 16:42 Patient informed of results and questions answered Reevaluation #4: Was pt. sent in by a medical professional or institution (TATYANA Calvo, SQL PROGRAMMER ANALYST, urgent care, hospital, or senior care...) When possible be specific @ -no Did you speak to anyone other than the patient for history (EMS, parent, family, police, friend...)? What history was obtained from this source @ -no Did you review nursing and triage notes (agree or disagree)? Why? @ -agree Are old charts reviewed (outside hosp., previous admission, EMS record, old EKG, old radiological studies, urgent care reports/EKG's, senior care records)? Report findings @ -yes Differential Diagnosis (chest pain, altered mental status, abdominal pain women, abdominal pain men, vaginal bleeding, weakness, fever, dyspnea, syncope, headache, dizziness, GI bleed, back pain, seizure, CVA, palpatations, mental health, musculoskeletal)? @ -prior EKG interpreted by me (3pts min.). @ -yes X-rays interpreted by me (1pt min.). @ -no CT interpreted by me (1pt min.). @ -Yes positive for enteritis U/S interpreted by me (1pt. min.). @ -no What testing was considered but not performed or refused? (CT, X-rays, U/S, labs)? Why? @ -none What meds were considered but not given or refused? Why? @ -none Did you discuss the management of the patient with other professionals (professionals i.e. TATYANA Calvo, SQL PROGRAMMER ANALYST, lab, RT, psych nurse, delinquency prevention social worker, equipment detailer, teacher, loan service officer, caser in)? Give summary @ -no Was smoking cessation discussed for >3mins.? @ -no Was critical care preformed (if so, how long)? @ -no Were there social determinants of health that impacted care today? How? (Homelessness, low income, unemployed, alcoholism, drug addiction, transportation, low edu. Level, literacy, decrease access to med. care, custodial, rehab)? @ -none Was there de-escalation of care discussed even if they declined (Discuss DNR or withdrawal of care, Hospice)? DNR status @ -no What co-morbidities impacted this encounter? (DM, HTN, Smoking, COPD, CAD, Cancer, CVA, ARF, Chemo, Hep., AIDS, mental health diagnosis, sleep apnea, morbid obesity)? @ -none Was patient admitted / discharged? Hospital course, mention meds given and route, prescriptions, significant lab abnormalities, going to OR and other pertinent info. @ - 63 male to ER for evaluation of nausea vomiting diarrhea enteritis on evaluation. Patient feeling improved with symptom management here in the ER and can be discharged home Discharged Undiagnosed new problem with uncertain prognosis? @ -no Drug Therapy requiring intensive monitoring for toxicity (Heparin, Nitro, Insulin, Cardizem)? @ -no Were any procedures done? @ -no Diagnosis/symptom? @ -Enteritis nausea vomiting diarrhea Acute, or Chronic, or Acute on Chronic? @ -Acute Uncomplicated (without systemic symptoms) or Complicated (systemic symptoms)? @ -Complicated Side effects of treatment? @ -no Exacerbation, Progression, or Severe Exacerbation? @ -exacerbation Poses a threat to life or bodily function? How? (Chest pain, [place], [place], pneumonia, PE, COPD, DKA, ARF, appy, cholecystitis, CVA, Diverticulitis, Homicidal, Suicidal, threat to staff... and all critical care pts) @ -yes Reevaluation #5: Differential Abdominal Pain Men: Appendicitis, cholecystitis, diverticulosis, ischemic bowel, pancreatitis, hepatitis, UTI, gastroenteritis, AAA, incarcerated hernia, bowel obstruction, constipation, inflammatory bowel, hepatitis, peptic ulcer disease, splenic infarction, perforated viscus, testicular torsion, this is not meant to be an all-inclusive list Medical Decision Making - Medical Decision Making 63 male to ER for evaluation of nausea vomiting diarrhea enteritis on evaluation. Patient feeling improved with symptom management here in the ER and can be discharged home - Lab Data Result diagrams: 07/10/24 18:28 07/10/24 18:28 Lab Results 07/10/24 07/10/24 07/10/24 Range/Units 18:28 18:28 18:28 WBC 10.0 (3.8-10.6) k/uL RBC 4.80 (4.30-5.90) m/uL Hgb 15.3 (13.0-17.5) gm/dL Hct 46.4 (39.0-53.0) % MCV 96.7 (80.0-100.0) fL MCH 31.9 (25.0-35.0) pg MCHC 33.0 (31.0-37.0) g/dL RDW 12.8 (11.5-15.5) % Plt Count 219 (150-450) k/uL MPV 7.9 Neutrophils % 86 % Lymphocytes % 9 % Monocytes % 4 % Eosinophils % 0 % Basophils % 0 % Neutrophils # 8.5 H (1.3-7.7) k/uL Lymphocytes # 0.9 L (1.0-4.8) k/uL Monocytes # 0.4 (0-1.0) k/uL Eosinophils # 0.0 (0-0.7) k/uL Basophils # 0.0 (0-0.2) k/uL PT 11.8 (10.0-12.5) sec INR 1.1 (<1.2) APTT 22.9 (22.0-30.0) sec Sodium 139 (137-145) mmol/L Potassium 4.6 (3.5-5.1) mmol/L Chloride 112 H (98-107) mmol/L Carbon Dioxide 20 L (22-30) mmol/L Anion Gap 7 mmol/L BUN 15 (9-20) mg/dL Creatinine 0.82 (0.66-1.25) mg/dL Est GFR (CKD-EPI)AfAm >90 (>60 ml/min/1.73 sqM) Est GFR (CKD-EPI)NonAf >90 (>60 ml/min/1.73 sqM) Glucose 104 H (74-99) mg/dL Plasma Lactic Acid Jose (0.7-2.0) mmol/L Calcium 8.5 (8.4-10.2) mg/dL Total Bilirubin 0.8 (0.2-1.3) mg/dL AST 23 (17-59) U/L ALT 26 (4-49) U/L Alkaline Phosphatase 65 (38-126) U/L Troponin I (0.000-0.034) ng/mL Total Protein 6.4 (6.3-8.2) g/dL Albumin 3.9 (3.5-5.0) g/dL Amylase 50 (30-110) U/L Lipase 108 (23-300) U/L Urine Color Urine Appearance (Clear) Urine pH (5.0-8.0) Ur Specific [place] (1.001-1.035) Urine Protein (Negative) Urine Glucose (UA) (Negative) Urine Ketones (Negative) Urine Blood (Negative) Urine Nitrite (Negative) Urine Bilirubin (Negative) Urine Urobilinogen (<2.0) mg/dL Ur Leukocyte Esterase (Negative) Urine RBC (0-5) /hpf Urine WBC (0-5) /hpf Ur Squamous Epith Cells (0-4) /hpf Urine Mucus (None) /hpf 07/10/24 07/10/24 07/10/24 Range/Units 18:28 18:28 18:36 WBC (3.8-10.6) k/uL RBC (4.30-5.90) m/uL Hgb (13.0-17.5) gm/dL Hct (39.0-53.0) % MCV (80.0-100.0) fL MCH (25.0-35.0) pg MCHC (31.0-37.0) g/dL RDW (11.5-15.5) % Plt Count (150-450) k/uL MPV Neutrophils % % Lymphocytes % % Monocytes % % Eosinophils % % Basophils % % Neutrophils # (1.3-7.7) k/uL Lymphocytes # (1.0-4.8) k/uL Monocytes # (0-1.0) k/uL Eosinophils # (0-0.7) k/uL Basophils # (0-0.2) k/uL PT (10.0-12.5) sec INR (<1.2) APTT (22.0-30.0) sec Sodium (137-145) mmol/L Potassium (3.5-5.1) mmol/L Chloride (98-107) mmol/L Carbon Dioxide (22-30) mmol/L Anion Gap mmol/L BUN (9-20) mg/dL Creatinine (0.66-1.25) mg/dL Est GFR (CKD-EPI)AfAm (>60 ml/min/1.73 sqM) Est GFR (CKD-EPI)NonAf (>60 ml/min/1.73 sqM) Glucose (74-99) mg/dL Plasma Lactic Acid Jose 1.2 (0.7-2.0) mmol/L Calcium (8.4-10.2) mg/dL Total Bilirubin (0.2-1.3) mg/dL AST (17-59) U/L ALT (4-49) U/L Alkaline Phosphatase (38-126) U/L Troponin I <0.012 (0.000-0.034) ng/mL Total Protein (6.3-8.2) g/dL Albumin (3.5-5.0) g/dL Amylase (30-110) U/L Lipase (23-300) U/L Urine Color Yellow Urine Appearance Clear (Clear) Urine pH 7.5 (5.0-8.0) Ur Specific [place] >1.050 H (1.001-1.035) Urine Protein 1+ H (Negative) Urine Glucose (UA) Negative (Negative) Urine Ketones 1+ H (Negative) Urine Blood Negative (Negative) Urine Nitrite Negative (Negative) Urine Bilirubin Negative (Negative) Urine Urobilinogen <2.0 (<2.0) mg/dL Ur Leukocyte Esterase Negative (Negative) Urine RBC 16 H (0-5) /hpf Urine WBC 1 (0-5) /hpf Ur Squamous Epith Cells <1 (0-4) /hpf Urine Mucus Few H (None) /hpf - Radiology Data Radiology results: report reviewed (CT abdomen pelvis is positive for enteritis), image reviewed Disposition Clinical Impression: Abdominal pain, Abdominal colic, Gastroenteritis Disposition: HOME SELF-CARE Condition: Good Instructions (If sedation given, give patient instructions): Abdominal Pain (ED) Is patient prescribed a controlled substance at d/c from ED?: No Referrals: None,Stated [Primary Care Provider] - 1-2 days Time of Disposition: 19:10
[2024-07-10] MEDS: HYDROmorphone 0.5 MG/0.5 ML SYRINGE IVP STA (16:33)
[2024-07-10] MEDS: PANTOPRAZOLE 40 MG/10 ML VIAL IVP STA (16:34)
[2024-07-10] MEDS: ONDANSETRON 4 MG/2 ML VIAL IVP STA (16:34)
[2024-07-10] MEDS: LORazepam 2 MG/ML INJ IV STA (16:35)
[2024-07-10] MEDS: SODIUM CHLORIDE 0.9% 1,000 ML IV STA (16:35)
[2024-07-10] MEDS: SODIUM CHLORIDE 0.9% 500 ML 500 ML IV STA (17:32)
[2024-07-10 18:37] LABS: Basophils % (A) 0 %; Eosinophils % (A) 0 %; HCT 46.4 % (39.0-53.0); HGB 15.3 gm/dL (13.0-17.5); Lymphocytes # (A) 0.9 k/uL (1.0-4.8); Lymphocytes % (A) 9 %; MCH 31.9 pg (25.0-35.0); MCV 96.7 fL (80.0-100.0); Mean Platelet Volume 7.9; Monocytes # (A) 0.4 k/uL (0-1.0); Monocytes % (A) 4 %; Neutrophils # (A) 8.5 k/uL (1.3-7.7); Neutrophils % (A) 86 %; Platelet Count 219 k/uL (150-450); RDW 12.8 % (11.5-15.5)
--- NOTE | 2024-07-10 18:39 | CT ---
EXAMINATION TYPE: CT abdomen pelvis w con DATE OF EXAM: 07/10/2024 COMPARISON: 09/07/2019 HISTORY: 63-year-old male with abdominal pain with nausea and vomiting. TECHNIQUE: Contiguous axial scanning of the abdomen and pelvis following administration of 100 ml Iso piotr 300 IV contrast. Delayed images through the kidneys and coronal/sagittal reconstructions perform ed. CT DLP: 1431.5 mGycm Automated exposure control for dose reduction was used. FINDINGS: Heart normal size without pericardial effusion. Prominent LAD and circumflex coronary arter y calcifications present. Scattered calcified granulomas in the visualized lower lungs. No pleural ef fusion. No focal liver lesion or biliary ductal dilatation. Portal venous system is patent. Gallbladder, adrenal glands, left kidney, spleen, and pancreas within normal limits. Tiny 7 mm cortical cyst right kidney. No dilated small bowel, free fluid, or free air. No mesenteric or retroperitoneal lymphadenopathy. However, there are prominent fluid-filled small bowel loops throughout the abdomen and liquid stool w ithin the right side of the colon. Otherwise, minimal scattered stool throughout the remainder of the colon. No pericolic inflammatory change. Bladder nondistended limiting its evaluation. Central prostatic calcifications and a few pelvic phleb olith. No abnormal fluid collection in the pelvis or pelvic lymphadenopathy. Bones: Severe degenerative disc disease L5-S1 with advanced hypertrophic facet arthropathy lower lumb ar spine. IMPRESSION: PROMINENT FLUID-FILLED SMALL BOWEL LOOPS THROUGHOUT THE ABDOMEN IN THE WITH STOOL IN THE RIGHT SIDE O F THE COLON. CORRELATE FOR ENTERITIS.
[2024-07-10 18:44] LABS: Appearance,Urine Clear (Clear); Bilirubin,Urine Negative (Negative); Blood,Urine Negative (Negative); Color,Urine Yellow; Glucose,Urine (UA) Negative (Negative); Ketones,Urine 1+ (Negative); Leukocyte Esterase,Urine Negative (Negative); Mucus,Urine Few /hpf; Nitrite,Urine Negative (Negative); PH, Urine 7.5 (5.0-8.0); Protein,Urine 1+ (Negative); RBC,Urine 16 /hpf (0-5); Squamous Epithelial Cell,Urine <1 /hpf (0-4); Urobilinogen,Urine <2.0 mg/dL (<2.0); WBC,Urine 1 /hpf (0-5)
[2024-07-10 18:47] LABS: ALT 26 U/L (4-49); AST 23 U/L (17-59); African American GFR (CKD) >90 (>60 ml/min/1.73 sqM); Albumin 3.9 g/dL (3.5-5.0); Alkaline Phosphatase 65 U/L (38-126); Amylase 50 U/L (30-110); Anion Gap 7 mmol/L; Blood Urea Nitrogen 15 mg/dL (9-20); Calcium 8.5 mg/dL (8.4-10.2); Carbon Dioxide 20 mmol/L (22-30); Chloride 112 mmol/L (98-107); Glucose 104 mg/dL (74-99); Lipase 108 U/L (23-300); Non-African American GFR(CKD) >90 (>60 ml/min/1.73 sqM); Potassium 4.6 mmol/L (3.5-5.1); Sodium 139 mmol/L (137-145); Total Bilirubin 0.8 mg/dL (0.2-1.3); Total Protein 6.4 g/dL (6.3-8.2)
[2024-07-10 18:47] LABS: Specific Gravity,Urine >1.050 (1.001-1.035)
[2024-07-10 18:58] LABS: INR 1.1 (<1.2); Partial Thromboplastin Time 22.9 sec (22.0-30.0); Prothrombin Time 11.8 sec (10.0-12.5)
[2024-07-10] MEDS: ONDANSETRON 4 MG ODT STARTER PACK 2 TAB BTL PO STA (19:58)
[2024-07-10] MEDS: HYDROmorphone 1 MG/ML 1 ML SYRINGE IVP STA (19:58)
[2024-07-10] MEDS: PROCHLORPERAZINE INJ 10 MG/2 ML VIAL IVP STA (19:58)
[2024-07-10 20:10] VITALS: BP 133/64; PULSE 76
== END 2024-07-10 20:30 | disposition home or self-care (01) ==
LOC: EC 15:41
DX: R11.0 Nausea
CPT/HCPCS: 36415; 74177; 80053; 81001; 82150; 83605; 83690; 84484; 85025; 85610; 85730; 96374; 96375; 96376; 99284

== ENCOUNTER → 2025-02-25 | Outpatient (CLI) | payer MEDICARE ==
--- NOTE | 2025-02-26 09:09 | MR ---
INDICATION: Patient age:Male; 64 years old; Reason for study: M54.16 RADICULOPATHY, LUMBAR REGION; [facility]. COMPARISONS: MR lumbar spine 12/03/2018, 06/05/2016. TECHNIQUE: Multi planar, multi sequence imaging was performed utilizing: T1-weighted, T2-weighted, a nd turbo inversion recovery imaging of the lumbar spine. The patient was not given contrast. FINDINGS: The lumbar vertebral bodies do have preserved heights and alignment. Straightening of the normal lumbar lordosis. Similar benign bone island with T1/T2 hypointensity within the L5 vertebral b queenie. Prominent type II Modic changes involving the endplates around the L5-S1 disc. Similar diffuse h eterogenous bone marrow signal. Multilevel anterior osteophytosis. No abnormal STIR signal. Multileve l disc desiccation is present. Significant disc height loss at L5-S1. The conus medullaris and the d istal spinal cord do appear unremarkable with regards to their signal intensity and morphology. T12-L1: Tiny right paracentral disc protrusion. No significant effacement of the anterior thecal sac. No neural foraminal stenosis. L1-L2: No significant disc pathology is identified. The spinal canal and neural foramen are patent. L2-L3: Broad-based disc bulge and ligamentum flavum buckling and bilateral facet uptake attributed t o mild central canal stenosis. No significant neuroforaminal stenosis. L3-L4: Broad-based disc bulge with ligamentum flavum buckling and bilateral facet arthropathy contri bute to mild to moderate central canal stenosis. The left neural foramen is patent. Mild right neural foraminal stenosis. L4-L5: Prominent right lateral osteophyte. Disc bulge with ligamentum flavum buckling and bilateral f acet ectopic activity mild central canal stenosis. Right foraminal zone disc protrusion with cranial migration approximately 6 mm along the posterior cortex of the L4 vertebral body. This is new from pr ior MR. Moderate right neural foraminal stenosis. Minimal left neural foraminal stenosis. The disc he rniation abuts the exiting right L4 nerve root. L5-S1: Advanced degenerative disc disease. Previously seen disc bulge is no longer visualized. No dis c herniation or significant central canal stenosis. Partial fusion changes of the vertebral bodies wi th osteophyte formation. Bilateral facet arthropathy. Mild bilateral neural foraminal stenosis with r ight greater than left. Other significant findings: None. IMPRESSION: Multilevel degenerative disc disease and osteoarthritic change with development of a right foraminal zone at L4-L5 disc herniation with cranial migration. Disc material abuts the exiting right L4 nerve root. [facility], , 02/26/2025 9:06 AM
== END | disposition home or self-care (01) ==
LOC: RADMRIMAIN 17:10
PROVIDERS: ATTEND Anesthesiology Pain Medicine
DX: M51.16 Intervertebral disc disorders with radiculopathy, lumbar region (principal); M47.26 Other spondylosis with radiculopathy, lumbar region; M99.73 Connective tissue and disc stenosis of intervertebral foramina of lumbar region
CPT/HCPCS: 72148